=== PATIENT | female | born 1985 | race Two or more races ===

== ENCOUNTER 2025-05-06 23:42 | Emergency (ER) | payer BC ==
[~2025-05-06] VITALS: Ht 172.7 cm; Wt 55.3 kg
[2025-05-06 23:48] VITALS: BP 104/55
[2025-05-07] MEDS ORDERED: ONDANSETRON 4 MG/2 ML VIAL ONE (00:26)
[2025-05-07] MEDS ORDERED: KETOROLAC TROMETHAMINE 30 MG INJ ONE (00:26)
[2025-05-07 00:28] LABS: PLATELET COUNT (AUTO) 217 K/uL (179-408); RED BLOOD CELL COUNT(AUTO) 4.23 MIL/uL (3.63-4.92); RED CELL DISTRIBUTION WIDTH 17.4 % (12.3-17.7); WHITE BLOOD COUNT (AUTO) 4.8 K/uL (3.8-11.8)
[2025-05-07 00:35] LABS: CREATININE 0.7 mg/dL (0.6-1.3); SODIUM SERUM 135.0 mmol/L (136-145); UREA NITROGEN, BLOOD 12.0 mg/dL (7-18)
[2025-05-07] MEDS: IV NORMAL SALINE 1000 ML BAG IV ONE (00:35)
[2025-05-07] MEDS: ONDANSETRON 4 MG/2 ML VIAL IV ONE (00:36)
[2025-05-07] MEDS: KETOROLAC TROMETHAMINE 30 MG INJ IVP ONE (00:36)
[2025-05-07 00:41] LABS: ASPARTATE AMINOTRANSFERASE 73.0 U/L (15-37); TOTAL PROTEIN, SERUM 7.1 g/dL (6.4-8.2)
[2025-05-07 00:54] LABS: PREGNANCY TEST SERUM QUAN 1.0 miul/L (0-6)
[2025-05-07] MEDS ORDERED: ONDA-243 PO (01:20)
[2025-05-07 01:46] VITALS: BP 113/62; TEMP 99.5; O2SAT 98
[2025-05-07] MEDS ORDERED: ONDANSETRON ODT 4 MG TAB.RAPDIS ONE (02:29)
[2025-05-07] MEDS: ONDANSETRON ODT 4 MG TAB.RAPDIS SL ONE (02:31)
== END 2025-05-07 01:47 | disposition home or self-care (01) ==
LOC: ER 23:53
DX: R11.2 Nausea with vomiting, unspecified (principal); R50.9 Fever, unspecified; J18.9 Pneumonia, unspecified organism; R10.20 Pelvic and perineal pain unspecified side; E86.0 Dehydration; Z86.018 Personal history of other benign neoplasm; Z88.1 Allergy status to other antibiotic agents; Z88.2 Allergy status to sulfonamides; Z20.822 Contact with and (suspected) exposure to COVID-19
CPT/HCPCS: 99285; 96374; 76705; 71045; 96361; 96375; 87426; 87804 ×2; 80076; 80048; 83690; 85025; 84702; J1885; J2405; J7040; 36415; A4606; A4663; Q0162